=== PATIENT | male | born 1950 | race Caucasian/White ===

== ENCOUNTER 2024-04-15 12:27 | Emergency (ER) | payer MEDICARE, SELFPAY ==
--- NOTE | ~2024-04-15 | XR_ITS ---
EXAMINATION: XR chest 2V 04/15/2024 12:57 INDICATION: Cough for 5 days. History of asthma. PROCEDURE: 2 view chest COMPARISON: No prior studies for comparison. FINDINGS: The lungs are clear. The cardiomediastinal silhouette is within normal limits. There are no pleural effusions. There is no pneumothorax suspected. IMPRESSION: 1: NO ACUTE CARDIOPULMONARY DISEASE. Reviewed, dictated and finalized at location B.
--- NOTE | 2024-04-15 12:29 | ED.URI ---
HPI - URI/Sore Throat General Chief Complaint: Upper Respiratory Infection Stated Complaint: COUGH/FEVER/NO ENERGY/ASTHMA Time Seen by Provider: 04/15/24 12:39 Source: patient, RN notes reviewed and old records reviewed Mode of arrival: ambulatory Limitations: no limitations History of Present Illness HPI Narrative: 73-year-old male presents to [facility] with complaints of fever, cough and body aches for 5 days. Has history of asthma Reports that he does take Advair twice daily. Used a nebulizer treatment of albuterol this morning. That was the 1st time in 5 days. Tried taking 1 Tessalon Perle last night. Denies any other treatment prior to arrival Onset (ago): day(s) (5) Related Data Home Medications Medication Instructions Recorded Confirmed ergocalciferol (vitamin D2) 1,250 1,250 mcg PO WEEKLY 04/15/24 04/15/24 mcg (50,000 unit) capsule fluticasone 250 mcg-salmeterol 50 1 inh inhalation BID 04/15/24 04/15/24 mcg/dose blistr powdr for inhalation (Advair Diskus) fluticasone propionate 50 1 spray intranasal DAILY 04/15/24 04/15/24 mcg/actuation nasal spray,suspension lisinopril 20 mg tablet 20 mg PO DAILY 04/15/24 04/15/24 omeprazole 20 mg capsule,delayed 20 mg PO DAILY 04/15/24 04/15/24 release rosuvastatin 10 mg tablet 10 mg PO DAILY 04/15/24 04/15/24 tadalafil 20 mg tablet 20 mg PO PRN PRN Erectile 04/15/24 04/15/24 Dysfunction Allergies Allergy/AdvReac Type Severity Reaction Status Date / Time No Known Allergies Allergy Verified 04/15/24 12:43 Review of Systems Review of Systems: All systems reviewed & are unremarkable except as noted in HPI and below Constitutional: Constitutional: Reports as per HPI, Reports body ache(s), Reports fatigue and Reports fever(s) (99.1) Eyes: Eyes: Reports no additional eye complaints ENT: Reports system reviewed and no additional complaints, except as documented Cardiovascular: Cardiovascular: Denies chest pain and Denies dyspnea Respiratory: Respiratory: Reports as per HPI, Denies chest congestion, Reports cough, Denies dyspnea and Reports wheezing Gastrointestinal: Gastrointestinal: Reports no additional gastrointestinal complaints, Denies abdominal pain, Denies nausea and Denies vomiting Musculoskeletal: Musculoskeletal: Reports no additional musculoskeletal complaints Integumentary/Breasts: Skin/Breast: Reports system reviewed and no additional complaints, except as docu Neurologic: Reports system reviewed and no additional complaints, except as documented Psychiatric: Psychiatric: Reports no additional psychiatric complaints Allergic/Immunologic: Allergic/Immunologic: Reports no additional allergic/immunologic complaints PMFSH Past Medical History Medical History H/O gastroesophageal reflux (GERD) High cholesterol Hypertension Social History Social History (Updated 04/15/24 @ 12:32 by Rachel Horton APRN) Living arrangements: with family Gender identity (if verbalized by the patient): Male Comments At the time of my signature, I reviewed and agree with the nursing past medical, surgical, social, and family history. There is no relevant family history pertinent to the patient complaint. Exam Const: General: cooperative, healthy appearing, comfortable, no acute distress, well developed, alert and well nourished Nutritional Appearance: well nourished Orientation/consciousness: patient oriented x3 Limitations: no limitations HENMT: Head: normal to inspection Ears: hearing grossly normal bilaterally, external ears normal, TM's normal bilaterally, EAC's normal, mastoids normal and no periauricular adenopathy Face/Nose/Sinus: Normal external nose present, Normal nares present, Normal nasal mucous membranes and turbinates present, normal facial exam, sinuses nontender and face symmetric Face and sinus: normal facial exam and face symmetric Mouth: Yes Normal oral and palatal
[2024-04-15 12:39] VITALS: BP 115/63; PULSE 75; RESP 16; TEMP 37.3; O2SAT 99
[2024-04-15 12:44] VITALS: BP 115/63; PULSE 75; RESP 16; TEMP 37.3; O2SAT 99
== END 2024-04-15 13:20 | disposition home or self-care (01) ==
PROVIDERS: Emergency Provider Nurse Practitioner; PCP Family Medicine
DX: J40 Bronchitis, not specified as acute or chronic (principal); J45.909 Unspecified asthma, uncomplicated; K21.9 Gastro-esophageal reflux disease without esophagitis; E78.00 Pure hypercholesterolemia, unspecified; I10 Essential (primary) hypertension
CPT/HCPCS: 71046; 99213; G0463

== ENCOUNTER 2024-06-01 11:55 | Emergency (ER) | payer MEDICARE, SELFPAY ==
[2024-06-01] VITALS (9 sets, daily range): BP systolic 122–149; BP diastolic 63–93; PULSE 53–67; RESP 15–21; TEMP 36.6; O2SAT 97–100
--- NOTE | ~2024-06-01 | XR_ITS ---
XR chest 2V Ordering provider: Marjan Rubio MD History: 73 years Male with . dizzy . Comparison: April 15, 2024 FINDINGS: MEDIASTINUM: The cardiac silhouette is not enlarged. LUNGS: No infiltrates, effusions or pneumothorax. OTHER: No free air under the diaphragm. Degenerative changes of the spine. IMPRESSION: No acute cardiopulmonary pathology. Reviewed, dictated and finalized at location A.
--- NOTE | ~2024-06-01 | CT_ITS ---
CT brain wo con Ordering provider: Awa Hernandez MD History: 73 years Male with . sudden onset intense MYERS . Comparison: None. Technique: CT of the head without contrast. Radiation reduction technique utilized. DLP is 605.33 mGy-cm. FINDINGS: BRAIN PARENCHYMA AND CSF SPACES: Mild leukoaraiosis and diffuse cortical atrophy. Mild atheromatous d isease. No midline shift, mass effect or hemorrhage. The brain parenchyma and CSF spaces are otherwi se normal. VISUALIZED PARANASAL SINUSES: Right sphenoid and left maxillary sinusitis. MASTOIDS: Well aerated. BONES: The bones appear intact. SOFT TISSUES: Visualized nasopharynx is normal. Superficial soft tissues are normal. IMPRESSION: No acute intracranial findings. Right sphenoid and left maxillary sinus disease. Reviewed, dictated and finalized at location A.
--- NOTE | 2024-06-01 12:33 | ECG_ITS ---
Test Date: 2024-06-01 12:41:56 Measurements Intervals Marydel Rate: 55 P: 9 CA: 167 QRS: 3 QRSD: 85 T: 14 QT: 401 QTc: 384 Interpretive Statements SINUS BRADYCARDIA CONSIDER INFERIOR INFARCT, AGE INDETERMINATE BASELINE ARTIFACT- I, II, III, AVR, AVL, AVF, V1 ABNORMAL ECG No previous ECG available for comparison Electronically Signed On 06-01-2024 12:49:55 CDT by Shawn Colón D.O.
[2024-06-01 13:09] LABS: Basophils Percent Auto 0.2 % (0.2-1.2); Eosinophils Absolute Auto 0.1 K/mm3 (0-0.3); Eosinophils Percent Auto 1.1 % (0-4.4); Hematocrit 40.5 % (42.0-52.0); Hemoglobin 13.2 g/dL (14.0-18.0); Immature Granulocyte Absolute 0.03 K/mm3 (0.00-0.031); Immature Granulocyte Percent A 0.3 % (0-0.5); Lymphocytes Absolute Auto 1.61 K/mm3 (0.9-3.2); Lymphocytes Percent Auto 18.1 % (18.3-44.2); Mean Corpuscular HGB Conc 32.6 g/dl (32-36); Mean Corpuscular Hemoglobin 29.7 pg (26-34); Mean Platelet Volume 10.5 fl (7.4-10.4); Monocytes Absolute Auto 0.6 K/mm3 (0.1-0.6); Monocytes Percent Auto 7.2 % (2.6-8.5); Neutrophils Absolute Auto 6.5 K/mm3 (1.3-6.7); Neutrophils Percent Auto 73.1 % (45.5-73.1); Platelet Count Result 209 k/mm3 (150-375); Red Blood Count 4.45 M/mm3 (4.6-6.20); Red Cell Distribution Width 13.4 % (11.5-14.5); White Blood Count 8.9 K/mm3 (4.5-10.0)
[2024-06-01 13:16] LABS: Alanine Aminotransferase 33 U/L (6-50); Albumin Level 4.3 g/dL (3.5-5.1); Alkaline Phosphatase 61 U/L (38-126); Anion Gap 9 mmol/L (4-12); Aspartate Amino Transferase 37 U/L (17-59); Bilirubin,Total 0.4 mg/dL (0.2-1.3); Blood Urea Nitrogen 14 mg/dL (9-20); Carbon Dioxide 31 mmol/L (22-30); Chloride 100 mmol/L (98-107); Estimated CRCL calculation 62 ml/min; Estimated Glomerular Filt Rate > 60; Glucose 110 mg/dL (65-110); Potassium 4.1 mmol/L (3.4-5.0); Sodium 140 mmol/L (137-145)
--- NOTE | 2024-06-01 14:28 | ED.HA ---
HPI - Headache General Chief Complaint: Dizziness Stated Complaint: dizzy Time Seen by Provider: 06/01/24 13:35 History of Present Illness HPI Narrative: Patient is a 73-year-old male with a history of hyperlipidemia, asthma, hypertension presenting with headache. Patient states that he was helping his in the garage and he bent over. When he straightened back off the had a sudden intense headache associated with lightheadedness. No vertigo, numbness or weakness, speech or vision changes. States that he continued to have a headache lightheadedness so he came in for evaluation. States that currently he is feeling improved. He denies chest pain, palpitations, shortness of breath. No fevers, nausea vomiting. Related Data Home Medications Medication Instructions Recorded Confirmed ergocalciferol (vitamin D2) 1,250 1,250 mcg PO WEEKLY 04/15/24 04/15/24 mcg (50,000 unit) capsule fluticasone 250 mcg-salmeterol 50 1 inh inhalation BID 04/15/24 04/15/24 mcg/dose blistr powdr for inhalation (Advair Diskus) fluticasone propionate 50 1 spray intranasal DAILY 04/15/24 04/15/24 mcg/actuation nasal spray,suspension lisinopril 20 mg tablet 20 mg PO DAILY 04/15/24 04/15/24 omeprazole 20 mg capsule,delayed 20 mg PO DAILY 04/15/24 04/15/24 release rosuvastatin 10 mg tablet 10 mg PO DAILY 04/15/24 04/15/24 tadalafil 20 mg tablet 20 mg PO PRN PRN Erectile 04/15/24 04/15/24 Dysfunction Allergies Allergy/AdvReac Type Severity Reaction Status Date / Time No Known Allergies Allergy Verified 04/15/24 12:43 Review of Systems Review of Systems: All systems reviewed & are unremarkable except as noted in HPI and below PMFSH Past Medical History Medical History H/O gastroesophageal reflux (GERD) High cholesterol Hypertension Social History Social History Living arrangements: with family Gender identity (if verbalized by the patient): Male Exam Narrative: GENERAL: Well-appearing, in no acute distress, pleasant cooperative HEAD: Normocephalic, atraumatic. EYES: PERRLA and EOMI. ENT: Mucous membranes moist. NECK: Supple. CHEST: Clear to auscultation. No respiratory distress. HEART: Regular rate and rhythm ABDOMEN: Soft, nontender, nondistended EXTREMITIES: Normal range of motion. No edema. SKIN: Warm, dry, no rash. NEURO: No focal deficits. Alert and oriented x3. 5/5 strength in all extremities, no pronator drift, [id number] intact, no dysarthria or aphasia, no facial droop PSYCH: Normal mood and affect. Course Vital Signs Vital signs: Vital Signs Temperature 97.8 F 06/01/24 11:47 Pulse Rate 66 06/01/24 11:47 Respiratory Rate 20 06/01/24 11:47 Blood Pressure 142/93 H 06/01/24 11:47 Pulse Oximetry 98 06/01/24 11:47 Oxygen Delivery Room Air 06/01/24 11:47 Temperature 97.8 F 06/01/24 11:47 Pulse Rate 61 06/01/24 14:41 Respiratory Rate 15 06/01/24 14:41 Blood Pressure 144/84 H 06/01/24 14:41 Pulse Oximetry 100 06/01/24 14:41 Oxygen Delivery Room Air 06/01/24 11:47 MDM - Headache MDM Narrative Medical decision making narrative: 73-year-old male presenting with sudden onset headache. Patient is mildly hypertensive, was vitals are within normal limits. He is neurologically intact. He actually denies any complaints right now. States that his symptoms have improved. His blood work is unremarkable. EKG per interpretation shows sinus bradycardia, nonspecific ST changes, no ST elevations or depressions. Chest x-ray without acute abnormalities. CT brain without acute abnormalities. Orthostatic vital signs are normal. Patient continues to feel well and feels comfortable going home. Advised close PCP follow-up. Appropriate return precautions given. Discharged in stable condition. Differential Diagnosis Differential diagnosis: Leigh Ann
[2024-06-01] MEDS: SODIUM CHLORIDE 0.9% IV 1,000 ML 999 ML IV CONT (14:41)
[2024-06-01 15:41] LABS: Influenza A QL RT-PCR Negative (Negative); Influenza B QL RT-PCR Negative (Negative); SARS-CoV-2 RNA PCR Negative (Negative)
--- NOTE | 2024-06-05 09:59 | PC.NURSE ---
LATE ENTRY This note is being entered to document information to the patient's record. The following information was omitted on [06/05/24], by [Sunita Jung RN]. NS stopped at 1541 on 06/01/24
== END 2024-06-01 15:48 | disposition home or self-care (01) ==
PROVIDERS: Student in an Organized Health Care Education/Training Program; Emergency Provider Emergency Medicine; PCP Family Medicine
DX: R51.9 Headache, unspecified (principal); R42 Dizziness and giddiness; I10 Essential (primary) hypertension; J45.909 Unspecified asthma, uncomplicated; E78.00 Pure hypercholesterolemia, unspecified; K21.9 Gastro-esophageal reflux disease without esophagitis; Z79.899 Other long term (current) drug therapy; R94.31 Abnormal electrocardiogram [ECG] [EKG]; R00.1 Bradycardia, unspecified; J32.0 Chronic maxillary sinusitis; J32.3 Chronic sphenoidal sinusitis
CPT/HCPCS: 36415; 70450; 71046; 80053; 85025; 87636; 93005; 96360; 99284; J7030

== ENCOUNTER 2025-03-17 14:25 | Emergency (ER) | payer MEDICARE, SELFPAY ==
--- NOTE | ~2025-03-17 | XR_ITS ---
XR foot LT min 3V Ordering provider: Sandra David NP History: . injury February 10 in yard . Comparison: None. FINDINGS: BONES: No acute fracture or dislocation. Erosive area seen in the distal metaphysis of the fifth meta tarsal bone with adjacent soft tissue swelling which raises the possibility of Gout arthropathy. Clin ical correlation advised. JOINT SPACES: Narrowing of the proximal and distal interphalangeal joints. No tarsal coalition. SOFT TISSUES: Normal. IMPRESSION: No acute osseous abnormality left foot. Erosive area in the distal metaphysis of the fifth metatarsal bone with adjacent soft tissue swelling which may indicate gout arthropathy. Clinical correlation advised. Reviewed, dictated and finalized at location A. IMPRESSION: No acute osseous abnormality left foot. Erosive area in the distal metaphysis of the fifth metatarsal bone with adjacen t soft tissue swelling which may indicate gout arthropathy. Clinical correlatio n advised.
--- OUTSIDE RECORDS SUMMARY | 2025-03-17 14:28 | XMS_ITS | Encounter Summary ---
Author Organization [facility] Address [address] [place] [id number] Care Team Providers Care Mailing Section Clerk Name Role Phone Milton Arguello MD Primary Care Provider Un available Nishant Sellers MD Unavailable [phone] Jim Benton OD Unavailable [phone] Nova Carballo MD Primary Care Provider [phone] Encounter Details Date Type Department Care Team (Late st Contact Info) Description 01/10/2023 [employer] Message Enc [facility] Family Medicine [address] [id number] [facility] Provider Overdue for Annual Physical Social History Tobacco Use Types Packs/Day Years Used Date Smoking Tobacco: Never Smokeless Tobacco: Never Alcohol Use Standard Drinks/Week Comments Yes 0 (1 standard drink = 0.6 oz pur e alcohol) PHQ-2 Answer Date Recorded PHQ-2 Score - If the patient scores above 3, please move on to questions 3-9 0 04/05/2021 Sex and Gender Information Value Date Recorded Sex Assigned at Not on file 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 [address] [place] [address] PCP - General INTERNAL MEDICINE 08/31/24 Nishant Sellers MD [address] [place] [address] UROLOGY 04/05/21 Jim Benton OD [address] [place] [address] Wire[employer] 04/05/21 documented as of this encounter
--- OUTSIDE RECORDS SUMMARY | 2025-03-17 14:28 | XMS_ITS | Clinical Summary ---
Author Organization [facility] Address [address] [place] [id number] Care Team Providers Care Compressor Station Engineer Chief Name Role Phone Trevor Grewal MD Primary Care Provider [phone] Allergies Active Allergy Reactions Criticality Noted Date Comments Niacin Unknown 03/02/2019 Medications cholecalciferol (VITAMIN D-3) 2,000 unit tabletIndication s:Vitamin D deficiency Take 2,000 Units by mouth daily Active ascorbic acid (VITAMIN C) 1,000 mg tabletIndication s:Essential hypertension Take 1 tablet by mouth daily Active aspirin (ASPIR-81) 81 mg enteric coated tabletIndication s:Essential hypertension Take 81 mg by mouth daily Active Cialis 20 mg tabletIndication s:Erectile dysfunction, unspecified erectile dysfunction type Take 1 tablet (20 mg total) by mouth daily as needed for erectile dysfunction 10 tablet 0 Active ergocalciferol (VITAMIN D) 50,000 unit capsuleIndicatio ns:Vitamin D deficiency TAKE 1 CAPSULE BY MOUTH 1 TIME A WEEK 12 capsule 3 0 Active fluticasone propion-salmeter oL (Advair Diskus) 250-50 mcg/dose diskus inhalerIndicatio ns:Mild intermittent asthma without complication Inhale 1 puff 2 (two) times a day Rinse mouth with water after use. Do not swallow. 180 each 3 1 Active rosuvastatin (CRESTOR) 10 mg tabletIndication s:Dyslipidemia Take 1 tablet (10 mg total) by mouth daily APPT REQUIRED FOR FUTURE REFILLS. 30 tablet 1 Active lisinopriL (PRINIVIL,ZESTRI L) 20 mg tabletIndication s:Essential hypertension Take 1 tablet (20 mg total) by mouth daily APPT REQUIRED FOR FUTURE REFILLS. 30 tablet 1 Active Active Problems Problem Noted Date Diagnosed Date Medicare annual wellness visit, subsequent 01/19 Assessment & Plan (01/20/2020 8:42 AM CDT): Patient here for annual Medicare wellness visit and for review of complete medical problem list. All the elements of the plan were completed as outlined by CMS. A copy of the prevention plan was given to the patient. I reviewed Medicare Wellness Questionnaire (other physicians involved in care, depression screen, advanced directives), cognitive/memory, and functional assessment. Forms scanned in progress notes. I reviewed and updated the complete problem list, medication list, family history, and immunization records with the patient. I provided preventive counseling and early detection interventions to the patient through health maintenance update and summary of today's office visit. Personalized Prevention Plan Services (PPPS): Immunization: [id number]: UTD. [id number]: UTD. Influenza: UTD. HepatitisB: Not Applicable. Tetanus: UTD. Shingles: Recommended . Cancer Screening: Mammogram: Not Applicable. PAP Smear: UTD. and Follows urologist . Prostate Cancer Screening: Not Applicable. Colorectal Cancer Screening: UTD. and [address] Johnson. Repeat 2020. . Lung Cancer Screening: Not Applicable. Others: Diet: Lifestyle education regarding diet discussed. Exercise: Encouraged regular daily exercise. Medication Use: Aspirin use discussion. DEXA Scan: Not Applicable. Glaucoma Screening: Recommended Annually. Audio Screen ordered? No Diabetes: Not Applicable. Annual Labs: UTD. and Next Due: 06/2021 . Abdominal Aortic Aneurysm Screening: Not Applicable. HIV Screening: Not Applicable. Smoking cessation Counselling: Not Applicable. Subsequent Annual Wellness Visit: Annually Vitamin D deficiency 01/19/2019 Assessment & Plan (07/15/2019 9:19 AM CDT): Overall Condition Stable and Well-controlled. Treatment: Continue Present Management Follow up in 6 months Dyslipidemia 03/17/2017 Assessment & Plan (07/15/2019 9:19 AM CDT): Overall Condition Stable and Well-controlled. Treatment: Continue Present Management Follow up in 6 months Male erectile dysfunction 03/17/2017 Mild intermittent asthma without complication Assessment & Plan (07/15/2019 9:19 AM CDT): Overall Condition Stable and Well-controlled. Treatment: Continue Present Management Follow up in 6 months HTN (hypertension) 04/08/2013 Assessment & Plan (07/15/2019 9:19 AM CDT): Overall Condition Stable and Well-controlled. Treatment: Continue Present Management Follow up in 6 months Prostate cancer 03/15/2013 Assessment & Plan (07/15/2019 9:20 AM CDT): Follows Urologist Annually. Immunizations Immunization Administration Dates Next Due Flucelvax Influenza Quad MDI 10/01/2013 Influenza, Quadrivalent, Spl it, Preservative Free, Intramuscular 08/26/2019 Influenza, Trivalent, Adjuvanted, Intramuscular 08/26/2018 Influenza, Trivalent, High D ose, Split, Preservative Free, Intramuscular 08/22/2016 Influenza, Trivalent, IM (MDV) 09/04/2017 Influenza, Trivalent, Preservative Free, Intramu scular 09/01/2017 Influenza, Unspecified 08/17/2015 Pneumococcal Conjugate PCV 13 09/01/2017, 015 Pneumococcal Polysaccharide PPV23 08/26/2019, Td, adsorbed 05/18/2002 Surgical History Surgery Date Site/Laterality Comments HERNIA REPAIR right inguinal Medical History Medical History Date Comments Prostate cancer (HCC) Asthma Dyslipidemia ED (erectile dysfunction) Hypertension Impaired fasting glucose Family History Medical History Relation Name Comments Diabetes Mother Relation Name Status Comments Brother Alive Father Mother Sister 1 Alive Sister 2 Alive Sister 3 Alive Social History Tobacco Use Types Packs/Day Years Used Date Smoking Tobacco: Never Alcohol Use Standard Drinks/Week Comments Yes 0 (1 standard drink = 0.6 oz pur e alcohol) PHQ-2 Answer Date Recorded PHQ-2 Total Score (If total score is 3 or more points, staff should administer the PHQ-9) 0 01/20/2020 Sex and Gender Information Value Date Recorded Sex Assigned at Not on file 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 Gender Identity Not on file Sexual Orientation Not on file Obstetrics History Last Filed Vital Signs Vital Sign Reading Time Taken Comments Blood Pressure 130/80 01/20/2020 8:09 AM CDT Pulse 65 01/20/2020 8:09 AM CDT Temperature 36.4 C (97.5 F) 01/20/2020 8:09 AM CDT Respiratory Rate 16 01/20/2020 8:09 AM CDT Oxygen Saturation 98% 07/15/2019 8:07 AM CDT Inhaled Oxygen Concentration - - Weight 96.6 kg (213 lb) 01/20/2020 8:09 AM CDT Height 182.9 cm (6') 01/20/2020 8:09 AM CDT Body Mass Index 28.89 01/20/2020 8:09 AM CDT Plan of Treatment Health Maintenance Due Date Last Done Comments Hepatitis B Screening 1968 Zoster Vaccine (1 of 2) 1998 DTaP/Tdap/Td Vaccine (1 - Tdap) 05/19/2002 2 Depression Screening 01/19/2021 01/20/2020, 07/15/20 19 Fall Risk Assessment 01/19/2021 01/20/2020 Well Visit 65+ 01/19/2021 01/20/2020 Influenza Vaccine (#1) 2024 9, 08/26/2018, 09/04/2017, Additional history exists Pneumococcal vaccine 65+ Completed 019, 09/01/2017, 08/17/2015, Additional history exists Hepatitis C Screening Completed 07/19/2020 Procedures Procedure Name Priority Date/Time Associated Diagnosis Comments HEPATITIS C ANTIBODY Routine 07/19/2020 6:37 AM CDT Need for hepatitis C screening test from Last 3 Months or Most Recently Relevant to Health Maintenance Results * Hepatitis C antibody (07/19/2020 6:37 AM CDT) Hep C Ab NONREACT NONREACTIVE [facility] Comment: Siemens CentaurXP using CLARY (chemiluminescent immunoassay) technology. NONREACTIVE: Antibodies to Hepatitis C not detected. This does not exclude early acute Hepatitis C infection, possibility of exposure to Hepatitis C, antibodies below detection limit, or to lack of antibody reactivity to the antigen used in this assay. EQUIVOCAL: Antibodies to Hepatitis C may or may not be present. Sample to be confirmed by real-time PCR method. REACTIVE: Antibodies to Hepatitis C detected.Sample to be confirmed by real-time PCR method. Blood specimen (specimen) 07/19/2020 6:37 AM CDT 07/19/2020 7:01 AM CDT Narrative Resulting Agency Comment CLI Trevor Grewal MD LAB MICROBIOLOGY - GENERAL ORDER ELICEO Final Result [facility] [address] [place] [address], [facility] [phone] from Last 3 Months or Most Recently Relevant to Health Maintenance Insurance [employer] [place]ICARE [place] [address] [address] MEDICARE Care Teams Compressor Station Engineer Chief Relationship Specialty Start Date End Date Trevor Grewal MD PCP - General Family Medicine 06/09/19
--- OUTSIDE RECORDS SUMMARY | 2025-03-17 14:28 | XMS_ITS | Encounter Summary ---
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 Historical Provider Final Res ult * SCAN - LABS (02/13/2016 12:00 AM CDT) Narrative 02/13/2016 12:00 AM CDT Ordered by an unspecified provider. Historical Provider Final Res ult documented in this encounter Visit Diagnoses Not on filedocumented in this encounter Care Teams Account Executive Agribusiness Relationship Specialty Start Date End Date Trevor Grewal MD PCP - General Family Medicine 06/09/19 documented as of this encounter
--- OUTSIDE RECORDS SUMMARY | 2025-03-17 14:28 | XMS_ITS | Encounter Summary ---
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 Historical Provider Final Res ult documented in this encounter Visit Diagnoses Not on filedocumented in this encounter Care Teams Channel Layer Relationship Specialty Start Date End Date Trevor Grewal MD PCP - General Family Medicine 06/09/19 documented as of this encounter
--- OUTSIDE RECORDS SUMMARY | 2025-03-17 14:28 | XMS_ITS | Clinical Summary ---
Author Organization [facility] Address formerly [facility] [place] [address] Care Team Providers Care Machine Joiner Cementer Name Role Phone Nishant Sellers MD Unavailable [phone] Jim Benton OD Unavailable [phone] Nova Carballo MD Primary Care Provider [phone] Allergies Active Allergy Reactions Criticality Noted Date Comments Niacin Unknown 03/02/2019 Medications tadalafil 20 MG tablet 1 tablet (20 mg total) daily as needed. 0 Active vitamin C 1000 MG tablet Take 1 tablet (1,000 mg total) by mouth daily. Active Multiple Vitamin (ONE-A-DAY MENS) Tab Take 1 tablet by mouth daily. Active Cholecalciferol (VITAMIN D) 125 MCG (5000 UT) Cap 8 Active Cholecalciferol (VITAMIN D3) 50 MCG (2000 UT) Tab Take 1 capsule by mouth daily. Active Lactobacillus (PROBIOTIC ACIDOPHILUS OR) Acti ve fluticasone propionate (FLONASE) 50 MCG/ACT nasal sprayIndications :Allergic rhinitis with postnasal drip 1 spray by Each Nostril route daily. 16 g 2 4 Active ADVAIR DISKUS 250-50 MCG/ACT inhalerIndicatio ns:Mild persistent asthma without complication (HHS/HCC) INHALE 1 PUFF BY MOUTH TWICE DAILYINHALE 1 PUFF BY MOUTH TWICE DAILY 180 each 3 4 Active rosuvastatin (CRESTOR) 10 MG tabletIndication s:Dyslipidemia Take 1 tablet (10 mg total) by mouth daily. 90 tablet 3 4 Active omeprazole (PRILOSEC) 20 MG capsuleIndicatio ns:Chronic gastritis without bleeding, unspecified gastritis type Take 1 capsule (20 mg total) by mouth 2 (two) times a day. 180 capsule 3 4 Active lisinopril (PRINIVIL) 20 MG tabletIndication s:Essential hypertension Take 1 tablet (20 mg total) by mouth daily. 90 tablet 3 4 Active Active Problems Problem Noted Date Diagnosed Date Personal history of prostate cancer 10/23/2020 History of 2019 novel coronavirus disease (COVID -19) 10/23/2020 Vitamin D deficiency 01/19/2019 Overview (07/17/2021): Last Assessment & Plan: Overall Condition Stable and Well-controlled. Treatment: Continue Present Management Follow up in 6 months Erectile dysfunction following simple prostatect funmi 03/17/2017 Mild persistent asthma without complication ([facility]) 03/17/2017 Overview (09/05/2020): Last Assessment & Plan: Overall Condition Stable and Well-controlled. Treatment: Continue Present Management Follow up in 6 months Essential hypertension 04/08/2013 Overview (09/05/2020): Last Assessment & Plan: Overall Condition Stable and Well-controlled. Treatment: Continue Present Management Follow up in 6 months Hx of prostatectomy 03/25/2013 Prostate cancer ([facility]) 03/15/2013 Overview (07/17/2021): Last Assessment & Plan: Follows Urologist Annually. Dyslipidemia 12/26/2010 Resolved Problems Problem Noted Date Diagnosed Date Resolved Date Prostate cancer ([facility]) 03/15/2013 10/23/2020 Overview (09/05/2020): Last Assessment & Plan: Follows Urologist Annually. Encounters Date Type Department Care Team Description 01/12/2025 Telephone [facility] - [address] [place] [address] Nova Carballo MD Reschedule from Last 3 Months Immunizations Immunization Administration Dates Next Due Fluad influenza vaccine, Vineet drivalent (aIIV4), Inactivated, adjuvanted, preservative free, 0.5 mL,IM use 08/26/2018 Fluzone High Dose (IIV, triv alent, 0.5mL) 08/31/2024 Fluzone High Dose - >Age 65 (Prefilled Syringe) 09/14/2020 Influenza (Generic) 09/04/2017,09/01/2017,2014 Influenza Adult (Generic) 09/04/2021,,08/26/2019,2016,08/22/2016,10/01/2013,10/01/2013 MODERNA COVID-19 (12+) MRNA, LNP-S, PF, 100 MCG/ 0.5 ML DOSE 01/26/2021,12/29/2020 MODERNA COVID-19 (STRETCHER OPERATOR RADHA AUDREY), MRNA, LNP-S, PF, 50 MCG/ 0.25 ML DOSE 10/18/2021 Pneumococcal (Pneumovax 23) 08/26/2019, 3 Pneumococcal (Prevnar 13) 09/01/2017,08/17/2015 Pneumococcal (Prevnar 20) 02/18/2024 Shingrix 04/12/2022,01/22/2022 Td (Tenivac) preservative free 05/18/2002 Family History Medical History Relation Comments No Known Problems Brother Asthma Daughter Dx at 3 y/o. No Known Problems Father Diabetes Mother No Known Problems Sister 2 No Known Problems Sister 3 No Known Problems Sister 4 No Known Problems Sister 5 Relation Status Comments Brother Alive Daughter Father Mother Sister 1 Sister 2 Alive Sister 3 Alive Sister 4 Alive Sister 5 Alive Social History Tobacco Use Types Packs/Day Years Used Date Smoking Tobacco: Never Passive Smoke Exposure: Never Smokeless Tobacco: Never Tobacco Cessation:Counseling Given: Yes Alcohol Use Standard Drinks/Week Comments Yes 13.3 (1 standard drink = 0.6 oz pure alcohol) PHQ-2 Answer Date Recorded Patient Health Questionnaire-2 Score 0 08/31/2024 Sex and Gender Information Value Date Recorded Sex Assigned at Not on file Legal Sex Male 11:13 PM TELEPHONE ANSWERING SERVICE OPERATOR Gender Identity Not on file Sexual Orientation Not on file Last Filed Vital Signs Vital Sign Reading Time Taken Comments Blood Pressure 134/72 08/31/2024 2:55 PM CDT Pulse 65 08/31/2024 2:00 PM CDT Temperature 36.9 C (98.4 F) 08/31/2024 2:00 PM CDT Respiratory Rate 19 08/31/2024 2:00 PM CDT Oxygen Saturation 97% 08/31/2024 2:00 PM CDT Inhaled Oxygen Concentration - - Weight 97.3 kg (214 lb 9.6 oz) 08/31/2024 2:00 P M CDT Height 182.9 cm (6') 08/31/2024 2:00 PM CDT Body Mass Index 29.1 08/31/2024 2:00 PM CDT Plan of Treatment Health Maintenance Due Date Last Done Comments DTaP, Tdap and Td Vaccines (1 - Tdap) 05/19/2002 05/18/2002 RSV Immunization or 60+ Years (1 - 1-dose 75+ series) 2023 COVID-19 Vaccine ( - season) 2024 10/18/2021, 01/26/2021, 12/29/2020 PHQ-2 (Physician [place]) 11/10/2024 08/31/2024 Annual Medicare Wellness Visit 03/16/2026 04/05/2021 Postponed from 04/06/2022 (Patient Refused) Hepatitis C Completed 01/14/2022 Zoster Vaccines Completed 04/12/2022, 01/22/2022 Pneumococcal Vaccine: 50+ Years Completed 02/18/2024, 08/26/2019, 09/01/2017, Additional history exists Colorectal Cancer Screening Colonoscopy (10 Years) Discontinued 05/19/2024, 07/21/2015 Meningococcal B Vaccine Aged Out No l onger eligible based on patient's age to complete this topic Meningococcal Vaccine Aged Out No robin anjelica eligible based on patient's age to complete this topic RSV Immunizations Under 20 Months Aged Out No longer eligible based on patient's age to complete this topic Procedures Procedure Name Priority Date/Time Associated Diagnosis Comments COLONOSCOPY/EGD GENERIC (SCAN ORDER) 05/19/2024 HEPATITIS C ANTIBODY Routine 01/14/2022 7:46 AM TELEPHONE ANSWERING SERVICE OPERATOR Need for hepatitis C screening test from Last 3 Months or Most Recently Relevant to Health Maintenance Results * COLONOSCOPY/EGD GENERIC (SCAN ORDER) (05/19/2024) 05/19/2024 [facility] Scanned SCANNING Final Resu lt * HEPATITIS C ANTIBODY (01/14/2022 7:46 AM TELEPHONE ANSWERING SERVICE OPERATOR) HEPATITIS C AB NON-REACTI VE NON-REACT ASHLYN 01/14/2022 9:44 PM TELEPHONE ANSWERING SERVICE OPERATOR [facility] Comment: ANTIBODIES TO HCV NOT DETECTED. DOES NOT EXCLUDE THE POSSIBILITY OF EXPOSURE TO HCV. 01/14/2022 7:46 AM TELEPHONE ANSWERING SERVICE OPERATOR Milton Arguello MD LABORATORY Final Res ult Performing Organization Address City/State/[facility] Co de Phone Number [facility] [address] [place] [address], [phone] from Last 3 Months or Most Recently Relevant to Health Maintenance Insurance [employer] Care Teams Machine Joiner Cementer Relationship Specialty Start Date End Date Nova Carballo MD [address] [facility] [address] [place], [place] [id number] PCP - General INTERNAL MEDICINE 08/31/24 Nishant Sellers MD [address] [place] [address] UROLOGY 04/05/21 Jim Benton, VANIA [address] [place] [address] Tank Builder And Erector 04/05/21
--- OUTSIDE RECORDS SUMMARY | 2025-03-17 14:28 | XMS_ITS | Encounter Summary ---
Author Organization [facility] Address [address] [place] [address] Care Team Providers Care Director Of Healthcare Systems Name Role Phone Unavailable Primary Care Provider Unavailabl e Encounter Details Date Type Department Care Team (Late st Contact Info) Description 08/03/2018 Lab Requisition [facility] Care DermPath Lab [address] [facility] [place] [id number] Joyce Barkley MD [address] [facility] [address] [place] [address] Social History Tobacco Use Types Packs/Day Years Used Date Smoking Tobacco: Never Assessed Sex and Gender Information Value Date Recorded Sex Assigned at Not on file Legal Sex Male 5:37 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 Gender Identity Not on file Sexual Orientation Not on file documented as of this encounter Plan of Treatment Not on file documented as of this encounter Procedures Procedure Name Priority Date/Time Associated Diagnosis Comments DERMATOPATH TECHNICAL REPORT Routine 07/30/2018 12:00 AM CDT documented in this encounter Results * DERMATOPATH TECHNICAL REPORT (07/30/2018 12:00 AM CDT) Case Report Dermatopathology Report Case: [id number] Authorizing Provider: Joyce Barkley MD Collected: 07/30/2018 12:00 AM Pathologist: Adamaris Wong MD Received: 08/03/2018 06:07 AM Specimen: Skin, right shoulder 12:39 PM CDT DERMATOPATHOLOGY LABORATORY Clinical History DF R/O BCC. [place] papule. 8 12:39 PM CDT DERMATOPATHOLOGY LABORATORY Gross Description Specimen A: Received is one formalin filled container labeled with the patient's name and designated right shoulder. The specimen consists of a shave measuring [id number]. Jar 0. [facility] Dermatopathology Laboratory performed the technical component only. 8 12:39 PM CDT DERMATOPATHOLOGY LABORATORY Embedded Images 8 12:39 PM CDT DERMATOPATHOLOGY LABORATORY DISCLAIMER An external and internal positive and negative controls are appropriate for the histochemical, immunohistochemical and immunofluorescence stain(s) in this case (if any), except where stated explicitly. The performance characteristics of the stain(s) cited in this report were developed and its performance characteristic determined by the Dermatopathology Laboratory at [facility]. These tests need not be, and therefore are not, approved by the [place] Food and Drug Administration. The tests are used for clinical purposes. 8 12:39 PM T DERMATOPATHOLOGY LABORATORY Pathology/Cytolog y TISSUE SPECIMEN FROM SKIN / Unknown 07/30/2018 08/03/2018 6:07 AM CDT Joyce Barkley MD LAB - PATHOLOGY/CYTOLOGY ORD ERABLES Final Result DERMATOPATHOLOGY LABORATORY [facility] - Department of Dermatology [address] [facility] [address] [place] [address], [facility] [phone] documented in this encounter Visit Diagnoses Not on filedocumented in this encounter
--- OUTSIDE RECORDS SUMMARY | 2025-03-17 14:28 | XMS_ITS | Referral Summary ---
Author Organization [facility] Address [address] [place] [id number] Care Team Providers Care Child Life Assistant Name Role Phone Trevor Grewal MD Primary Care Provider [phone] Allergies Active Allergy Reactions Criticality Noted Date [...] visit. Personalized Prevention Plan Services (PPPS): Immunization: [id number]: UTD. [id number]: UTD. Influenza: UTD. HepatitisB: Not Applicable. 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 NONREACTIVE: Antibodies [...] AM CDT Narrative Resulting Agency Comment CLI us Trevor Grewal MD LAB MICROBIOLOGY - GENERAL ORDER ELICEO Final Result [facility] [address] [place] [address], [facility] [phone] from Last 3 Months or Most Recently Relevant to Health Maintenance [place] [address] [place] [address] MEDICARE ADVANTAGE MEDICARE Care Teams Child Life Assistant Relationship Specialty Start Date End Date Trevor Grewal MD PCP - General Family Medicine 06/09/19
--- OUTSIDE RECORDS SUMMARY | 2025-03-17 14:28 | XMS_ITS | Clinical Summary ---
Author Organization [facility] Address [address] [place] [address] Care Team Providers Care Physician President Name Role Phone Unavailable Primary Care Provider Unavailabl e Source Comments [facility],non-owned Affiliates and Associated Physician Practices is amultiple site organization consisting of ambulatory clinics and hospital sitesin [place], [place], [place] and [place]. This disclosure is being madepursuant to the Care Everywhere program and may not contain all information available regarding this patient. Last updated 18.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 Gender Identity Not on file Sexual Orientation Not on file Plan of Treatment Health Maintenance Due Date Last Done Comments HEPATITIS C SCREENING 08/05/1966 DTAP/TDAP/TD VACCINES (1 - Tdap) 1967 PNEUMOCOCCAL VACCINE 50+ (1 of 1 - PCV) 1998 ZOSTER VACCINE (1 of 2) 1998 Respiratory Syncytial Virus (RSV) Vaccine Pt: or over 60 yrs (1 - 1-dose 75+ series) 2023 COVID-19 VACCINE ( - 2023-2 5 season) 2024 DEPRESSION SCREENING 11/10/2024 INFLUENZA VACCINE (Season Ended) 2025 HEPATITIS B VACCINE Aged Out No longe r eligible based on patient's age to complete this topic HIB VACCINE Aged Out No longer eligi ble based on patient's age to complete this topic HPV VACCINE Aged Out No longer eligi ble based on patient's age to complete this topic MENINGOCOCCAL (Group B) VACC INE SHARED DECISION-MAKING Aged Out No longer eligibl e based on patient's age to complete this topic MENINGOCOCCAL GROUPS A/C/Y/W VACCINE Aged Out No longer eligible b ased on patient's age to complete this topic Insurance MANAGED MEDICARE ADV
[2025-03-17 14:30] VITALS: BP 167/77; PULSE 82; RESP 20; TEMP 36.8; O2SAT 98
--- NOTE | 2025-03-17 14:35 | ED_ITS ---
HPI - Extremity Injury (Lower) General Chief Complaint: Extremity Injury, Lower Stated Complaint: Left Foot Pain Time Seen by Provider: 03/17/25 14:36 Source: patient Mode of arrival: ambulatory Limitations: no limitations History of Present Illness HPI Narrative: 74 year old male who [facility] with complaints of pain to the lateral aspect of his left foot with some swelling which started in February. Patient reports that he was working in the yard [facility] [place] with large rocks on it prior to the pain starting. Patient reports he did not have a fall or have known injury. Patient reports that his is a nurse and she ordered him a post op shoe and he has been wearing it and it did seem to be getting better. Patient reports that since Friday he has been having increased pain to his mid left lateral foot with palpable tenderness noted, no acute swelling or redness noted Patient reports he is here today to make sure he doesn't have stress fracture in his foot. MD complaint: other (left mid lateral foot pain) Onset (ago): week(s) (3-4 weeks) Severity scale (1-10): 3 Exacerbating factors: weight bearing Treatments prior to arrival: other (has been wearing post op shoe ) Related Data Home Medications ?Medication ?Instructions ?Recorded ?Confirmed ?Last Taken ?Type fluticasone 250 mcg-salmeterol 50 1 inh inhalation BID 04/15/24 04/15/24 Unknown History mcg/dose blistr powdr for inhalation (Advair Diskus) lisinopril 20 mg tablet 20 mg PO DAILY 04/15/24 04/15/24 Unknown History omeprazole 20 mg capsule,delayed 20 mg PO DAILY 04/15/24 04/15/24 Unknown History release rosuvastatin 10 mg tablet 10 mg PO DAILY 04/15/24 04/15/24 Unknown History tadalafil 20 mg tablet 20 mg PO PRN PRN Erectile 04/15/24 04/15/24 Unknown History Dysfunction Allergies Allergy/AdvReac Type Severity Reaction Status Date / Time No Known Allergies Allergy Verified 03/17/25 14:42 Review of Systems Review of Systems: CONSTITUTIONAL: Denies fever, chills, or sweats. EYES: Denies visual changes, redness, or discharge. ENT: Denies rhinorrhea, congestion, sore throat, or otalgia. CARDIOVASCULAR: Denies chest pain, palpitations, or edema. RESPIRATORY: Denies cough or dyspnea. GASTROINTESTINAL: Denies abdominal pain, nausea, vomiting, or diarrhea. GENITOURINARY: Denies dysuria or hematuria. SKIN: Denies rash or itching. MUSCULOSKELETAL: Denies back pain,positive for left mid lateral foot pain, or myalgia. NEUROLOGIC: Denies headache, numbness, or weakness. PSYCHIATRIC: Denies anxiety or depression. All systems reviewed & are unremarkable except as noted in HPI and below PMFSH Past Medical History Medical History (Updated 03/19/25 @ 19:16 by Sandra David NP) High cholesterol Hypertension H/O gastroesophageal reflux (GERD) Surgical History Surgical History (Updated 03/19/25 @ 19:08 by Sandra David NP) History of hernia surgery History of prostate surgery 2013 cancer Social History Social History Smoking status: Never smoker Alcohol intake: current Substance use type: does not use Living arrangements: with family Gender identity (if verbalized by the patient): Male Comments At time of signature, agree with nursing past medical, surgical, social and family history. There is no relevant family history pertinent to the presenting complaint Exam Narrative: GENERAL: Well-appearing, well-nourished, and in no acute distress. HEAD: Normocephalic, atraumatic. EYES: PERRLA and EOMI. ENT: Nares clear, no rhinorrhea or epistaxis. Mucous membranes moist. NECK: Supple. CHEST: Clear to auscultation. No respiratory distress.SAO2 98% on room air HEART: Regular rate and rhythm. No murmur heard. Normal peripheral pulses. ABDOMEN: Soft, nontender, nondistended, normal active bowel sounds. EXTREMITIES: Normal range of motion. No edema. Exception noted to the mid lateral aspect of left foot with some tenderness on palpation, no acute swelling or redness, strong palpable pedal pulse of left foot, denies any tingling or numbness of left foot, full mobility present. SKIN: Warm, dry, no rash. NEURO: No focal deficits. Alert and oriented x3. Course Course Emergency Course: Patient is aware of diagnosis, understands and agrees to treatment plan.? Anticipatory guidance given.? Patient agrees to follow-up as directed and is aware of reasons to seek care at the emergency department. Portions of this record may have been created with voice recognition software Level of Care: Express Care Visit Vital Signs Vital signs: Vital Signs Temperature 36.8 C 03/17/25 14:30 Pulse Rate 82 03/17/25 14:30 Respiratory Rate 20 03/17/25 14:30 Blood Pressure 167/77 H 03/17/25 14:30 Pulse Oximetry 98 03/17/25 14:30 Oxygen Delivery Room Air 03/17/25 14:30 Temperature 36.8 C 03/17/25 14:30 Pulse Rate 82 03/17/25 14:30 Respiratory Rate 20 03/17/25 14:30 Blood Pressure 167/77 H 03/17/25 14:30 Pulse Oximetry 98 03/17/25 14:30 Oxygen Delivery Room Air 03/17/25 14:30 Reviewed MDM - Extremity Injury (Lower) Differential Diagnosis Differential diagnosis: Likely other (foot fracture, foot contusion, gout, left lateral foot pain) Medical Records Attestation: I reviewed the patient's medical records. Imaging Data Attestation: I personally reviewed and interpreted this imaging study as follows: My impression: Left foot: Errosive area distal metaphysis of 5th metatarsal with some soft tissue swelling indicative of possibility of gout arthropathy Radiologist's impression: [place] [address] XRay Report Signed Patient: Pancho Tolbert : 1950 MR#: [id number] Age: 74 Acct:[id number] Loc: [facility] ADM Date: 03/17/25Attending Dr: Ordering Physician: Sandra David APRN Date of Service: 03/17/25 Procedure(s): XR foot LT min 3V Accession Number(s): [id number] cc: Kait, Nova ALONSO; Sandra David APRN~ XR foot LT min 3V Ordering provider: Sandra David NP History: . injury February 10 in yard . Comparison: None. FINDINGS: BONES: No acute fracture or dislocation. Erosive area seen in the distal metaphysis of the fifth metatarsal bone with adjacent soft tissue swelling which raises the possibility of Gout arthropathy. Clinical correlation advised. JOINT SPACES: Narrowing of the proximal and distal interphalangeal joints. No tarsal coalition. SOFT TISSUES: Normal. IMPRESSION: No acute osseous abnormality left foot. Erosive area in the distal metaphysis of the fifth metatarsal bone with adjacent soft tissue swelling which may indicate gout arthropathy. Clinical correlation advised. Reviewed, dictated and finalized at location A. Please be advised this is a medical document. It is intended for [id number] communication. It is written in medical language and may contain unfamiliar abbreviations or verbiage. Medical documents are intended to carry relevant information, facts as evident, and the clinical opinion of the practitioner at the time of the encounter. This report may have been done utilizing a voice recognition system. Attempts have been made to correct errors. However, there may be uncorrected grammatical, spelling, and recognition errors present. The file time of this note does not necessarily represent the time of service. Dictated By: Cornell Barrios MD 03/17/25 [id number] Signed By: <Electronically signed by Cornell Barrios MD in OV> Critical Care Time Critical Care Time Critical Care Time: No Discharge Plan Discharge Clinical Impression: Foot pain, left Gout Qualifiers: Gout site: foot Gout etiology: unspecified cause Chronicity: acute Laterality: left Qualified Code(s): M10.9 - Gout, unspecified Patient Disposition: Home Condition: Stable Instructions: Low Purine Diet (ED), Gout (ED), Arthralgia (ED) Additional Instructions: May apply ice to left foot. elevate watch for any increasing -redness, swelling, pain Tylenol or Ibuprofen for any fever or pain follow up with PCP in 7-10 days recheck if develop fever, chills, increasing symptom Go to the ER if your symptoms become worse of if ANY new symptoms develop Avoid foods high in purine content, avoid alcohol If your symptoms persist, change or worsen significantly before you can contact your personal physician then please, without delay, go to the emergency department for further evaluation. Follow-up with PCP in 7-10 days or sooner if needed Follow up with PCP soon in regards to your blood pressure which is elevated above threshold for referral. Blood pressure above 120/80 may indicate pre- hypertension. steroids for x5 days for inflammation Patient Language: Czech Prescriptions: New prednisone 20 mg tablet 20 mg PO BID Qty: 10 0RF Rx Instructions: take with food No Action fluticasone propion-salmeterol [Advair Diskus] 250-50 mcg/dose blister with device 1 inh INHALATION BID lisinopril 20 mg tablet 20 mg PO DAILY omeprazole 20 mg capsule,delayed release(DR/EC) 20 mg PO DAILY rosuvastatin 10 mg tablet 10 mg PO DAILY tadalafil 20 mg tablet 20 mg PO PRN PRN (Reason: Erectile Dysfunction) (DME) Aerochamber MV Spacer See Rx Instructions .Route Qty: 1 0RF Rx Instructions: As directed Follow-up/Referrals: Kait,MD Nova [Primary Care Provider] - Time of Disposition: 15:39 Quality [place] Coma Scale Eyes: Open Verbal: Oriented and Alert Motor: Follows Commands [place] Coma Total Score: 15
== END 2025-03-17 15:53 | disposition home or self-care (01) ==
PROVIDERS: Emergency Provider Registered Nurse; PCP Internal Medicine
DX: M10.9 Gout, unspecified (principal); E78.00 Pure hypercholesterolemia, unspecified; I10 Essential (primary) hypertension; K21.9 Gastro-esophageal reflux disease without esophagitis
CPT/HCPCS: 73630; 99213; G0463